=== PATIENT | female | born 1945 | race Caucasian/White ===

== ENCOUNTER → 2017-10-28 | Outpatient (CLI) | payer MEDICARE ==
[~2017-10-28] MED LIST: ASPI81CH PO; MECL12.5 PO; ONDA4ODT SL; SERT50 PO; Zofran Odt4 MG SL
[2017-10-28 13:23] LABS: Microalb/Creat Ratio UR, Rand 4.106 mg/g (0.000-30.000); Microalbumin, Random Urine 6.98 mg/L (0.000-20.000)
== END | disposition home or self-care (01) ==
LOC: LAB 07:30
PROVIDERS: Family Medicine
DX: N18.3 Chronic kidney disease, stage 3 (moderate) (principal); R03.0 Elevated blood-pressure reading, without diagnosis of hypertension
CPT/HCPCS: 82043; 82570

== ENCOUNTER → 2018-05-02 | Outpatient (CLI) | payer MEDICARE ==
[2018-05-02 13:42] LABS: Source, Urine Clean Catch
[2018-05-02 17:12] LABS: Appearance, Urine Clear (Clear); Bilirubin, Urine Neg (Neg); Blood, Urine 2+ (Neg); Color, Urine Yellow (P-Yellow); Glucose Qualitative, Urine Neg (Neg); Ketones, Urine Neg (Neg); Leukocyte Esterase, Urine 2+ (Neg); Nitrite, Urine Pos (Neg); Protein, Urine 1+ (Neg); Urobilinogen, Urine NORM (Normal)
[2018-05-02 17:34] LABS: Bacteria Mod /hpf; Squamous Epithelial Cells Rare /hpf (Few); White Blood Cells, Urine 25-50 /hpf (0-5)
== END | disposition home or self-care (01) ==
LOC: LAB 13:37 → LAB SHORT 13:37
PROVIDERS: Family Medicine
DX: R30.0 Dysuria (principal)
CPT/HCPCS: 81001; 87077; 87086; 87186

== ENCOUNTER 2023-07-01 08:57 | Day surgery (SDC) | payer MEDICARE ==
[~2023-07-01] VITALS: Ht 165.1 cm; Wt 81.1 kg
[2023-07-01] VITALS (16 sets, daily range): BP systolic 90–146; BP diastolic 62–119
[~2023-07-01 08:57] MED LIST changes: +ALBU2.5V5 INH; +METO25ER PO; +SERT100 PO; +TRELEGY ELLIPT1 EACH IH
--- NOTE | 2023-07-01 10:00 | NUR ---
Ambulatory in Day Surgery History, Chart, Medications and Allergies reviewed before start of procedure.Lungs clear T/O to Auscultation. Patient confirms NPO status and agrees with scheduled surgery. Patient States Post-Procedure ride home has been arranged.
--- NOTE | 2023-07-01 10:52 | NUR ---
07/01/23 Constance Brennan HISTORY, CHART, MEDICATIONS AND ALLERGIES REVIEWED BEFORE START OF PROCEDURE. PATIENT CONFIRMS NPO STATUS AND AGREES WITH SCHEDULED PROCEDURE. 3-LEAD EKG REVIEWED WITH PHYSICIAN PRIOR TO START OF PROCEDURE. MONITOR INTACT WITH CONTINUOUS PULSE OXIMETRY,CAPNOGRAPHY, 3-LEAD EKG, INTERMITTENT BP. SUPPLEMENTAL O2 TO BE TITRATED THROUGHOUT PROCEDURE TO MAINTAIN O2 SATURATION ABOVE 90%. PATIENT DETERMINED TO BE ASA APPROPRIATE FOR PROPOFOL SEDATION PRIOR TO START OF PROCEDURE BY .
--- NOTE | 2023-07-01 11:20 | NUR ---
PT TO DAY SURGERY STEP DOWN FOR RECOVERY. PT AWAKE AND ORIENTED; ABLE TO MOVE SELF IN BED. DECLINES PO FLUIDS AT THIS TIME. PT IV WAS REMOVED IN THE ENDO ROOM. PT AT BEDSIDE AND WILL BE RIDE HOME.
--- NOTE | 2023-07-01 11:29 | NUR ---
PO FLUIDS GIVEN.
--- NOTE | 2023-07-01 11:38 | NUR ---
TOLERATING PO FLUIDS AND CRACKERS WELL Discharge instructions reviewed with patient. Patient verbalizes understanding. Copy given to patient to take home. Patient States Post-Procedure ride home has been arranged.
--- NOTE | 2023-07-01 11:51 | NUR ---
Patient up to Ambulate independently. Gait steady. Discharged via wheelchair to private car for ride home.
== END 2023-07-01 11:53 | disposition home or self-care (01) ==
LOC: ORSCMMR 08:57 → ORD 10:00 → ORSCMMR 10:00
PROVIDERS: Internal Medicine Gastroenterology
PROC: 0DBK8ZX Excision of Ascending Colon, Via Natural or Artificial Opening Endoscopic, Diagnostic (ICD-10-PCS; principal; 2023-07-01 10:00)
PROC: 0DBN8ZX Excision of Sigmoid Colon, Via Natural or Artificial Opening Endoscopic, Diagnostic (ICD-10-PCS; principal; 2023-07-01 10:00)
DX: Z12.11 Encounter for screening for malignant neoplasm of colon (principal); Z86.010 Personal history of colon polyps; K63.5 Polyp of colon; K57.30 Diverticulosis of large intestine without perforation or abscess without bleeding; J44.9 Chronic obstructive pulmonary disease, unspecified; F32.A Depression, unspecified; Z87.891 Personal history of nicotine dependence; Z79.899 Other long term (current) drug therapy
CPT/HCPCS: 88305; J2704; J7120

== ENCOUNTER 2023-08-09 17:42 | Inpatient (IN) | payer MEDICARE ==
[~2023-08-09] VITALS: Ht 162.6 cm; Wt 81.9 kg
[2023-08-09 18:21] LABS: Hematocrit 41.9 % (33.0-51.0); Hemoglobin 14.1 g/dL (11.5-16.0); Mean Corpuscular HGB 31.2 pg (26.0-34.0); Mean Corpuscular HGB Conc 33.7 g/dL (31.5-36.5); Mean Corpuscular Volume 93 fL (80-100); Mean Platelet Volume 10.3 fL (9.1-12.4); Platelet Count 188 K/mm3 (150-400); RDW Coefficient Variation 14.3 % (11.7-14.2); RDW Standard Deviation 49.3 fL (35.1-46.3); Red Blood Cell Count 4.52 M/mm3 (3.80-5.20); White Blood Cell Count 13.12 K/mm3 (4.00-11.30)
[2023-08-09 18:43] LABS: BAND PERCENT MAN 21 % (0-8); BASOPHILS PERCENT MAN 0 % (0-2); EOSINOPHILS PERCENT MAN 0 % (0-6); LYMPHOCYTES % ATYPICAL MANUAL 1 % (0-0); LYMPHOCYTES ABSOLUTE MAN 1.04 K/mm3 (0.84-5.20); LYMPHOCYTES PERCENT MAN 7 % (21-46); METAMYELOCYTE ABSOLUTE MAN 0.13 K/mm3 (0.00-0.00); METAMYELOCYTE PERCENT MAN 1 % (0-0); MONOCYTES ABSOLUTE MAN 0.39 K/mm3 (0.16-1.47); MONOCYTES PERCENT MAN 3 % (4-13); MYELOCYTE ABSOLUTE MAN 0.13 K/mm3 (0.00-0.00); MYELOCYTE PERCENT MAN 1 % (0-0); NEUTROPHILS ABSOLUTE MAN 11.41 K/mm3 (1.96-9.15); SEG NEUTROPHILS PERCENT MAN 66 % (41-73); TOTAL CELLS COUNTED 100
[2023-08-09 18:46] LABS: Albumin, Blood 3.4 g/dL (3.4-5.0); Albumin/Globulin Ratio 1.1 (0.8-1.8); Bilirubin, Total 1.2 mg/dL (0.1-1.0); Bun/Creatinine Ratio 23.8 (12.0-20.0); Calcium, Blood 8.2 mg/dL (8.5-10.1); Creatinine, Blood 1.05 mg/dL (0.40-1.00); Globulin, Blood 3.2 g/dL (2.2-4.0); Potassium, Blood 3.7 mmol/L (3.5-5.5); Total Protein, Blood 6.6 g/dL (6.4-8.2)
[2023-08-09 18:49] LABS: Base Excess Venous 0.5 mmol/L; PCO2 Venous 39.5 mmHg (38-42); pH Blood Venous 7.41 (7.34-7.37)
[2023-08-09 19:30] LABS: Influenza A, PCR NEGATIVE (NEGATIVE); Influenza B, PCR NEGATIVE (NEGATIVE); Resp Syncytial Virus, PCR NEGATIVE (NEGATIVE); SARS-Cov-2 (COVID-19) PCR, MMC NEGATIVE (NEGATIVE)
[2023-08-09 23:48] VITALS: BP 98/66
[2023-08-10 03:31] VITALS: BP 100/71
--- NOTE | 2023-08-10 04:27 | NUR ---
SHIFT SUMMARY. MS RAY WAS ADMITTED TO THE MEDICAL UNIT AT 2325 LAST EVENING. SHE WAS ABLE TO STAND INDEPENDENTLY WITH STEADY GAIT TO TRANSFER INTO BED. PT NPO, 2ND LITRE OF NS IVF COMPLETED AFTER ARRIVAL. SHE DENIED ANY RECENT NAUSEA, VOMITING OR DIARRHEA AND SAID THAT SHE IS FEELING BETTER THAN EARLIER ON SATURDAY. C/O SOME BACK PAIN WHICH SHE SAID STARTED WITH THE COUGHING, SHE REPORTED RELIEF WITH HEAT PAD. ON TELEMETRY IN AFIB, NO CALLS FROM [facility]. SLEEPING NOW ON OXYGEN 2L NC, WHICH IS HER BASELINE AT HOME. AWAITING SPUTUM SAMPLE AND STOOL SAMPLE, SHE SAID SHE COUGHED UP SMALL THICH YELLOW PHLEGM PRIOR TO ADMISSION. SHE LIVES AT HOME WITH HER AND IS INDEPENDENT AT HOME. BED LOW, CALL LIGHT IN REACH.
[2023-08-10 05:47] LABS: Hematocrit 38.4 % (33.0-51.0); Hemoglobin 12.8 g/dL (11.5-16.0); Mean Corpuscular HGB 31.6 pg (26.0-34.0); Mean Corpuscular HGB Conc 33.3 g/dL (31.5-36.5); Mean Corpuscular Volume 95 fL (80-100); Mean Platelet Volume 10.9 fL (9.1-12.4); Platelet Count 170 K/mm3 (150-400); RDW Coefficient Variation 14.4 % (11.7-14.2); RDW Standard Deviation 50.3 fL (35.1-46.3); Red Blood Cell Count 4.05 M/mm3 (3.80-5.20)
[2023-08-10 06:25] LABS: Albumin, Blood 2.8 g/dL (3.4-5.0); Albumin/Globulin Ratio 0.8 (0.8-1.8); Bilirubin, Total 0.6 mg/dL (0.1-1.0); Bun/Creatinine Ratio 27.4 (12.0-20.0); Calcium, Blood 8.1 mg/dL (8.5-10.1); Creatinine, Blood 0.95 mg/dL (0.40-1.00); Globulin, Blood 3.3 g/dL (2.2-4.0); Potassium, Blood 4.2 mmol/L (3.5-5.5); Total Protein, Blood 6.1 g/dL (6.4-8.2)
[2023-08-10 07:07] LABS: BAND PERCENT MAN 13 % (0-8); BASOPHILS PERCENT MAN 0 % (0-2); EOSINOPHILS PERCENT MAN 0 % (0-6); LYMPHOCYTES ABSOLUTE MAN 0.79 K/mm3 (0.84-5.20); LYMPHOCYTES PERCENT MAN 5 % (21-46); METAMYELOCYTE ABSOLUTE MAN 0.15 K/mm3 (0.00-0.00); METAMYELOCYTE PERCENT MAN 1 % (0-0); MONOCYTES PERCENT MAN 0 % (4-13); NEUTROPHILS ABSOLUTE MAN 14.85 K/mm3 (1.96-9.15); SEG NEUTROPHILS PERCENT MAN 81 % (41-73); TOTAL CELLS COUNTED 100
[2023-08-10 07:27] VITALS: BP 107/62
--- NOTE | 2023-08-10 09:00 | NUR ---
pt laying in bed awake a/ox4 pleasant and cooperative with care, follows commands well, denies pain at this time, denies n/v or loose stools since she's been here, lungs are clear in upper [place], dim in bases, resp even and unlabored, reports productive cough of blood tinged sputum, on 2 literes at this time, is home 02 dep on 2 liters at hs, hrirr, tele in place running afib per monitor, see strip, no edema noted, ppp+1, cap refill <3 sec, vs stable, afebrile, piv to lfa is clear and patent, btx4, abd flat soft nontender, voids without diff, skin c/w/d, maew, ruperto, call light in reach.
[2023-08-10 13:24] LABS: Adenovirus F 40/41 Not Detected (NOT DETECT); Astrovirus Not Detected (NOT DETECT); Campylobacter Sp Not Detected (NOT DETECT); Cryptosporidium Not Detected (NOT DETECT); Cyclospora Cayetanensis Not Detected (NOT DETECT); E. Coli O157 Not Detected (NOT DETECT); Entamoeba Histolytica Not Detected (NOT DETECT); Enteroaggregative E. coli-EAEC Not Detected (NOT DETECT); Enteropathogenic E. coli-EPEC Not Detected (NOT DETECT); Enterotoxigenic E. coli-ETEC Not Detected (NOT DETECT); Giardia Lamblia Not Detected (NOT DETECT); Norovirus GI/GII Not Detected (NOT DETECT); Plesiomonas Shigelloides Not Detected (NOT DETECT); Rotavirus A Not Detected (NOT DETECT); Salmonella Sp Not Detected (NOT DETECT); Sapovirus Not Detected (NOT DETECT); Shiga Toxin-prod E. coli-STEC Not Detected (NOT DETECT); Shigella/Enteroin E. coli-EIEC Not Detected (NOT DETECT); Vibrio Cholerae Not Detected (NOT DETECT); Vibrio Sp Not Detected (NOT DETECT); Yersinia Enterocolitica Not Detected (NOT DETECT)
[2023-08-10 14:06] VITALS: BP 129/93
--- NOTE | 2023-08-10 18:06 | NUR ---
pt doing ok, had a shower this afternoon, denies complaints or needs, no acute changes this shift, call light in reach.
[2023-08-10 19:36] VITALS: BP 121/69
[2023-08-11 03:13] VITALS: BP 114/74
[2023-08-11 05:51] LABS: Hematocrit 38.5 % (33.0-51.0); Hemoglobin 12.8 g/dL (11.5-16.0); Mean Corpuscular HGB 31.2 pg (26.0-34.0); Mean Corpuscular HGB Conc 33.2 g/dL (31.5-36.5); Mean Corpuscular Volume 94 fL (80-100); Mean Platelet Volume 10.8 fL (9.1-12.4); Platelet Count 173 K/mm3 (150-400); RDW Coefficient Variation 14.6 % (11.7-14.2); RDW Standard Deviation 50.7 fL (35.1-46.3); White Blood Cell Count 13.46 K/mm3 (4.00-11.30)
--- NOTE | 2023-08-11 06:08 | NUR ---
SHIFT SUMMARY MS RAY HAS HAD AN UNEVENTFUL NIGHT, AND SAID SHE SLEPT WELL. ON TELEMETRY IN AFIB, NO CALLS FROM ESTATE PLANNING ATTORNEY. SLEPT WITH OXYGEN 2L N/C ON WHICH IS HER NIGHT TIME HOME BASELINE. BED LOW, CALL LIGHT IN REACH.
[2023-08-11 06:14] LABS: BAND PERCENT MAN 12 % (0-8); BASOPHILS PERCENT MAN 0 % (0-2); EOSINOPHILS PERCENT MAN 0 % (0-6); LYMPHOCYTES ABSOLUTE MAN 0.53 K/mm3 (0.84-5.20); LYMPHOCYTES PERCENT MAN 4 % (21-46); MONOCYTES ABSOLUTE MAN 0.26 K/mm3 (0.16-1.47); MONOCYTES PERCENT MAN 2 % (4-13); NEUTROPHILS ABSOLUTE MAN 12.65 K/mm3 (1.96-9.15); SEG NEUTROPHILS PERCENT MAN 82 % (41-73); TOTAL CELLS COUNTED 100
[2023-08-11 06:57] LABS: Albumin, Blood 2.8 g/dL (3.4-5.0); Anion Gap 6 mmol/L (6-16); Blood Urea Nitrogen 20 mg/dL (8-24); Bun/Creatinine Ratio 25.5 (12.0-20.0); CO2, Blood 23 mmol/L (21-32); Calcium, Blood 8.4 mg/dL (8.5-10.1); Chloride, Blood 113 mmol/L (98-108); Creatinine, Blood 0.79 mg/dL (0.40-1.00); Glomerular Filtration Rate 77 (60-); Glucose, Blood 149 mg/dL (70-99); Phosphorus, Blood 2.6 mg/dL (2.5-4.9); Potassium, Blood 4.3 mmol/L (3.5-5.5); Sodium, Blood 142 mmol/L (136-145)
[2023-08-11 07:03] VITALS: BP 143/87
--- NOTE | 2023-08-11 09:00 | NUR ---
pt laying in bed awake a/ox4, pleasant and cooperative with care, follows commands well, denies pian, states her night was ok, lungs are clear in upper [place], dim in bases, has a productive cough of rust colored sputum, hrirr, tele in place running afib per montior, see strip, no edema noted, ppp+2, cap refill <3 sec, vs stable, afebrile, piv site is clear and patent to rfa, btx4, abd flat soft nontender, voids without diff, skin c/w/d, maew, up ad aide in room, ruperto, call light in reach.
[2023-08-11] MEDS ORDERED: Acetaminophen650 M1 PO (12:55)
[2023-08-11] MEDS ORDERED: VISBIOME 112.51 EACH PO (12:56)
[2023-08-11] MEDS ORDERED: CEFP200 PO (12:58)
[2023-08-11] MEDS ORDERED: AZIT250 PO (12:58)
[2023-08-11] MEDS ORDERED: PRED20 PO (12:59)
[2023-08-11] MEDS ORDERED: GUAI600T33 PO (13:53)
--- NOTE | 2023-08-11 16:12 | NUR ---
pt will be discharged to home after her iv abx are infused, they are currently running, new meds were faxed to [facility], and phone call to verify they recieveed them, pt doing well, feels ready to go home, went over her discharge instructions with her, she verbalized understanding, call light in reach.
--- NOTE | 2023-08-11 18:10 | NUR ---
pt ridkate is here, she is leaving with all her belongings via wheelchair with welfare centre manager in attendence. iv was removed intact.
== END 2023-08-11 18:10 | disposition home or self-care (01) | DRG 871 ==
LOC: ER 17:42 → MEDS 17:43
PROVIDERS: Student in an Organized Health Care Education/Training Program; ADMIT Internal Medicine
DX: A41.9 Sepsis, unspecified organism (principal); J18.9 Pneumonia, unspecified organism; J96.01 Acute respiratory failure with hypoxia; J44.0 Chronic obstructive pulmonary disease with (acute) lower respiratory infection; J44.1 Chronic obstructive pulmonary disease with (acute) exacerbation; R04.2 Hemoptysis; K52.9 Noninfective gastroenteritis and colitis, unspecified; I48.0 Paroxysmal atrial fibrillation; F32.A Depression, unspecified; Z79.899 Other long term (current) drug therapy; Z87.891 Personal history of nicotine dependence; Z99.81 Dependence on supplemental oxygen; Z11.52 Encounter for screening for COVID-19
CPT/HCPCS: 0241U; 36415; 71046; 71260; 80053; 80069; 82803; 83880; 84145; 84484; 85025; 85379; 87070; 87205; 87507; 93005; 93010; 94640; 94664; 94760; 96361; 96365; 96375; 99285-25; A9270; J0456; J0696; J1650; J2930; J7030; J7050; Q9967

== ENCOUNTER 2024-02-07 06:03 | Day surgery (SDC) | payer MEDICARE ==
[~2024-02-07] VITALS: Ht 165.1 cm; Wt 81.0 kg
[2024-02-07] VITALS (22 sets, daily range): BP systolic 122–147; BP diastolic 63–102
[~2024-02-07 06:03] MED LIST changes: +AZIT250 PO; +Acetaminophen650 M1 PO; +CEFP200 PO; +GUAI600T33 PO; +PRED20 PO; +VISBIOME 112.51 EACH PO
[2024-02-07] MEDS ORDERED: ALBU90OI INH (06:10)
[2024-02-07] MEDS ORDERED: ELIQUIS5 M2 PO (06:10)
[2024-02-07] MEDS ORDERED: Voltaren100 GM TD (06:11)
[2024-02-07] MEDS ORDERED: TOPROL XL25 MG PO (06:12)
[2024-02-07] MEDS ORDERED: ZOLOFT10013 PO (06:12)
[2024-02-07] MEDS ORDERED: ANORO ELLIPTA1 EACH INH (06:13)
[2024-02-07] MEDS ORDERED: NS 1,000 ML IV ONE (06:30)
[2024-02-07] MEDS ORDERED: Midazolam HCl 1MG / ML 2ML Vial ONE (07:24)
[2024-02-07] MEDS ORDERED: FentaNYL Citrate 50 MCG/ML 2 ML Injection ONE (07:24)
[2024-02-07] MEDS ORDERED: DiphenhydrAMINE HCl 50 MG/ML 1ML Vial ONE (07:24)
--- NOTE | 2024-02-07 08:59 | NUR ---
PATIENT DC'D HOME IN CARE OF . PT ESCORTED OUT VIA WHEELCHAIR. PT DENIED COMPLAINTS, VSS. PT WIDE AWAKE AND DRINKING COFFEE. VERBAL AND WRITTEN DISCHARGE INSTRUCTIONS GIVEN TO PATIENT AND PATIENT'S WITH CLEAR UNDERSTANDING. PT EDUCATED NOT TO DRIVE FOR 24HOURS D/T SEDATION. PT HAS FOLLOW UP APPOINTMENT WITH CARDIOLOGY AND WILL CONTINUE HOME MEDS PRESCRIBED.
== END 2024-02-07 08:30 | disposition home or self-care (01) ==
LOC: MHTC 06:03
DX: I48.19 Other persistent atrial fibrillation (principal); R06.09 Other forms of dyspnea; J44.9 Chronic obstructive pulmonary disease, unspecified; E78.2 Mixed hyperlipidemia; Z87.891 Personal history of nicotine dependence; Z79.01 Long term (current) use of anticoagulants; Z79.899 Other long term (current) drug therapy
CPT/HCPCS: 92960; 93005; 93010; 99152; J1200; J2250; J3010; J7030